=== PATIENT | male | born 1995 | race African-American/Black ===

== ENCOUNTER 2019-10-29 19:48 | Emergency (ER) | payer SELFPAY ==
[~2019-10-29] VITALS: Ht 180.3 cm; Wt 86.0 kg
[2019-10-29 22:38] VITALS: BP 115/80
== END 2019-10-29 22:40 | disposition home or self-care (01) ==
LOC: ER 19:48
DX: K52.9 Noninfective gastroenteritis and colitis, unspecified (principal); Z98.890 Other specified postprocedural states
CPT/HCPCS: 99281

== ENCOUNTER 2022-03-14 14:43 | Emergency (ER) | payer MEDICAID ==
[~2022-03-14] VITALS: Ht 177.8 cm; Wt 90.0 kg
[2022-03-14 14:47] VITALS: BP 130/72
[2022-03-14] MEDS ORDERED: LIDOCAINE HCL 1% 10 MG/ML 10ML VIAL INJ NR (16:42)
[2022-03-14] MEDS ORDERED: BACITRACIN ZINC OINT UDPKT TOP ONE (16:45)
[2022-03-14] MEDS ORDERED: LIDOCAINE HCL/PF 1% 10 MG/ML 5ML VIAL INFIL ONE (16:45)
[2022-03-14] MEDS ORDERED: ACETAMINOPHEN 325MG TABLET PO ONE (16:45)
[2022-03-14] MEDS ORDERED: TETANUS, DIPHTHERIA, PERTUSSIS VAC/PF 0.5ML (>10YR OLD) IM ONE (16:45)
[2022-03-14] MEDS ORDERED: BO1 TP (16:53)
== END 2022-03-14 17:33 | disposition home or self-care (01) ==
LOC: ER 15:10
DX: S61.411A Laceration without foreign body of right hand, initial encounter (principal); Z98.890 Other specified postprocedural states; W26.0XXA Contact with knife, initial encounter; Y93.89 Activity, other specified; Y92.010 Kitchen of single-family (private) house as the place of occurrence of the external cause
CPT/HCPCS: 12001; 90471; 90715; 99283; J3490